=== PATIENT | male | born 1970 | race Caucasian/White ===

== ENCOUNTER → 2018-10-28 | Day surgery (SDC) | payer MEDICAID ==
[~2018-10-28] MED LIST: ALDACTAZIDE 251 EAC1 PO; ALL DAY ALLERGY10 M3 PO; ASPIR 8181 MG PO; ATORVASTATIN CA40 MG PO; COLACE100 MG PO; COREG25 MG PO; ERGOCALCIF50000 UNIT PO; FLUOXETINE HCL40 MG PO; JARDIANCE25 MG PO; LANTUS SOL100 UNIT/1 SUBQ; LASIX 20 MG TAB20 MG PO; LIORESAL 10 MG10 MG PO; METFORMIN HCL500 MG PO; NEURONTIN 300300 M1 PO; NOVOLOG100 UNIT/1 SUBQ; OMEGA-31000 M1 PO; OXYCODONE HCL15 MG PO; PRALUENT P150 MG/1 M SUBQ; PROTONIX40 M1 PO; VICTOZA 3-0.6 MG/0.1 SUBQ; ZETIA10 MG PO
[2018-10-28 08:44] LABS: HEMOGLOBIN 16.2 gm/dL (14.0-18.0); MCHC 34.4 g/dL (28.0-37.0); MCV 90.1 fL (80.0-100.0); MPV 7.5 fl. (7.2-11.1); RBC 5.22 mil/uL (4.50-6.00); RDW-CV 14.6 % (10.5-14.5); WBC 10.3 thou/uL (4.0-11.0)
[2018-10-28 08:52] LABS: CALCIUM 9.3 mg/dL (8.5-10.1); CREATININE 0.6 mg/dL (0.6-1.3); POTASSIUM 3.6 mmol/L (3.5-5.1)
--- NOTE | 2018-10-28 09:03 | EKG ---
[place] [address] ELECTROCARDIOGRAM REPORT Name: TARSHA DOWD Room: [facility]#: [id number] Admission: 10/28/18 Attend Phys: Heladio Wilcox MD Discharge: Date of : 74 Report #: [id number] THIS REPORT FOR: //name// [facility] Test Date: 2018-10-28 Test Time: 08:36:33 Pat Name: TARSHA DOWD Department: Room: Gender: Still Photographer: : 1970 Requested By: Bg Dunn Order Number: [id number] Jony MD: Jared Earl Measurements Intervals [place] Rate: 69 P: 37 SD: 151 QRS: 46 QRSD: 111 T: 76 QT: 434 QTc: 465 Interpretive Statements Sinus rhythm Probable left atrial enlargement Anteroseptal infarct, old Minimal ST depression, lateral leads No previous ECG available for comparison Electronically Signed On 10-28-2018 9:02:58 CDT by Jared Earl [email or web address] <ELECTRONICALLY SIGNED> By: Jared Earl MD, [facility] 10/28/18901 Jared Earl MD, [facility] /EPI
--- NOTE | 2018-10-31 17:07 | PATH ---
[address] [address] PATHOLOGY RPT PROCEDURE Name: KERWIN DOWD ROBYN Room: [facility] Luisana#: [id number] Admission: 10/28/18 Date of : 74 Discharge: Report #: [id number] Path Case #: [id number] [facility] Accession Number: [id number] . 01 Material submitted: . stomach - GASTRIC BIOPSY FOR H. PYLORI . 01 Clinician provided ICD-10: K21.9 R10.9 . 01 Clinical history: . Acid reflux, abdominal pain . 02 Diagnosis: Gastric biopsy: - Mild chronic gastritis suggesting reactive gastropathy (chemical gastritis), negative for Helicobacter pylori organisms and dysplasia. (MIKEY:jorden; 10/31/2018) . . Special stain: H. pylori immuno. QMS/10/31/2018 . 02 Electronically signed: . Sanjeev Lundy MD, Pathologist NPI- [id number] . 01 Gross description: . Received in formalin labeled "Kerwin Dowd, gastric biopsy for H. pylori," are 2 segments of liao soft tissue measuring 0.7 x 0.2 x 0.2 cm in aggregate dimensions and ranging from 0.3 to 0.4 cm in maximum dimension. The specimen is submitted entirely in cassette A1. TOB/TOB . 02 Pathologist provided ICD-10: K29.50 . 02 CPT . 811938, C32623 Specimen Comment: A courtesy copy of this report has been sent to Specimen Comment: [phone], . Specimen Comment: Report sent to / DR BLACK Performed at: [address] [id number] MD Mik Melgar MD Phone: [phone] Performed at: [address] [address] PATHOLOGY RPT PROCEDURE Name: KERWIN DOWD ROBYN Room: [facility]#: [id number] Admission: 10/28/18 Date of : 74 Discharge: Report #: [id number] Path Case #: [id number] [address] [id number] MD Sanjeev Lundy MD Phone: [phone]
== END | disposition home or self-care (01) ==
LOC: M.SUR 06:50
PROVIDERS: Student in an Organized Health Care Education/Training Program
DX: K29.50 Unspecified chronic gastritis without bleeding (principal); K31.89 Other diseases of stomach and duodenum; I25.10 Atherosclerotic heart disease of native coronary artery without angina pectoris; E78.5 Hyperlipidemia, unspecified; I11.0 Hypertensive heart disease with heart failure; I50.9 Heart failure, unspecified; I25.2 Old myocardial infarction; I48.91 Unspecified atrial fibrillation; G47.30 Sleep apnea, unspecified; J44.9 Chronic obstructive pulmonary disease, unspecified; E11.40 Type 2 diabetes mellitus with diabetic neuropathy, unspecified; K21.9 Gastro-esophageal reflux disease without esophagitis; E66.9 Obesity, unspecified; F32.9 Major depressive disorder, single episode, unspecified; Z95.5 Presence of coronary angioplasty implant and graft; Z87.891 Personal history of nicotine dependence; Z86.73 Personal history of transient ischemic attack (TIA), and cerebral infarction without residual deficits